=== PATIENT | female | born 1960 | race Caucasian/White ===

== ENCOUNTER → 2016-07-29 | Outpatient (CLI) | payer BC | LOC: FIMAGING 10:08 | PROVIDERS: ATTEND Internal Medicine | DX: Z12.31 Encounter for screening mammogram for malignant neoplasm of breast (principal) | CPT/HCPCS: G0202 ==

== ENCOUNTER 2017-11-09 12:35 | Emergency (ER) | payer BC ==
[2017-11-09 13:31] LABS: PLATELET COUNT 259 10^3/uL (150-400)
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
[2017-11-09 13:34] LABS: INR 0.95 (0.83-1.16); PROTIME(PATIENT) 12.9 SEC (12.0-15.0)
--- NOTE | 2017-11-09 15:13 | CPEKG ---
Test Reason : OPEN Blood Pressure : / mmHG Vent. Rate : 067 BPM Atrial Rate : 068 BPM P-R Int : 144 ms QRS Dur : 073 ms QT Int : 382 ms P-R-T Axes : 037 075 062 degrees QTc Int : 404 ms Sinus rhythm Atrial premature complex Confirmed by Jessica Sood ([id number]) on 11/09/2017 3:12:39 PM Referred By: Confirmed By:Jessica Sood
[2017-11-09 15:40] VITALS: BP 107/64
== END 2017-11-09 15:40 | disposition home or self-care (01) ==
DX: R40.4 Transient alteration of awareness (principal)
CPT/HCPCS: 84484-PO